=== PATIENT | male | born 1980 | race African-American/Black ===

== ENCOUNTER 2017-06-18 00:08 | Emergency (ER) | payer SELFPAY | END 2017-06-18 00:39 | disposition left against medical advice (07) | LOC: ER 00:08 | DX: S05.92XA Unspecified injury of left eye and orbit, initial encounter (principal); Z53.21 Procedure and treatment not carried out due to patient leaving prior to being seen by health care provider; W22.8XXA Striking against or struck by other objects, initial encounter; Y93.89 Activity, other specified; Y92.89 Other specified places as the place of occurrence of the external cause; Y99.8 Other external cause status ==

== ENCOUNTER 2021-02-02 04:21 | Emergency (ER) | payer SELFPAY ==
[~2021-02-02] VITALS: Ht 182.9 cm; Wt 86.7 kg
[~2021-02-02 04:21] MED LIST: AMOX1TAB61 PO; QUET200T4 PO
[2021-02-02 04:55] VITALS: BP 155/86
--- NOTE | 2021-02-02 05:06 | PHYS DOC ---
Past Medical History Past Medical History: No Pertinent History Past Surgical History: No Surgical History Smoking Status: Current Every Day Smoker Alcohol Use: None Drug Use: Marijuana, Methamphetamine General Adult EDM: Chief Complaint: MEDICAL CLEARANCE HPI: HPI: 40-year-old male presents in police custody for medical clearance for incarceration. Patient reports some midsternal intermittent chest pain after jumping into a pond at 0300 this morning. Patient reports the police were going to tease him and that is when he jumped in the pond. Patient reports no significant cardiac risk factors except for smoking history. Patient denies any leg swelling or calf tenderness. Patient reports symptoms have since resolved. Review of Systems: Review of Systems: Constitutional: Denies fever or chills Eyes: Denies redness or eye pain HENT: Denies nasal congestion or sore throat Respiratory: Denies cough or shortness of breath Cardiovascular: Reports chest pain; denies palpitations GI: Denies abdominal pain, nausea, or vomiting : Denies dysuria or hematuria Musculoskeletal: Denies back pain or joint pain Integument: Denies rash or skin lesions Neurologic: Denies headache, focal weakness or sensory changes Complete systems were reviewed and found to be within normal limits, except as documented in this note. Heart Score: C/O Chest Pain: Yes HEART Score for Chest Pain: HEART Score for Chest Pain Response (Comments) Value History Slighlty/Non-Suspicious 0 ECG Normal 0 Age < 45 0 Risk Factors 1 or 2 Risk Factors 1 Total 1 Risk Factors: Risk Factors: DM, Current or recent (<one month) smoker, HTN, HLP, family history of CAD, obesity. Risk Scores: Score 0 - 3: 2.5% MACE over next 6 weeks - Discharge Home Score 4 - 6: 20.3% MACE over next 6 weeks - Admit for Clinical Observation Score 7 - 10: 72.7% MACE over next 6 weeks - Early Invasive Strategies Allergies: Allergies: Allergies Coded Allergies Type Severity Reaction Last Updated Verified No Known Drug Allergies 10/02/15 No Physical Exam: PE: Constitutional: Well developed, well nourished, no acute distress, non-toxic appearance HENT: Normocephalic, atraumatic Eyes: Conjunctiva normal, no discharge Neck: Normal range of motion, supple Lungs & Thorax: No respiratory distress, equal chest rise and fall Abdomen: Soft, no tenderness Skin: Warm, dry, no erythema, no rash Extremities: No tenderness, ROM intact, no edema Neurologic: Alert and oriented X 3, no focal deficits noted Psychologic: Affect normal, judgment normal EKG: EKG: @0501 Sinus tachycardia at 108bpm, NO ST elevation, QRS 92ms, QT/QTc 324/438ms Radiology/Procedures: Radiology/Procedures: [] Course & Med Decision Making: Course & Med Decision Making Patient presents with atypical chest pain. EKG stable. Physical exam unremarkable. Patient cleared for incarceration. Patient stable for discharge with outpatient follow-up with PCP. Discussed findings and plan with patient, who acknowledges understanding and agreement. [place] Disclaimer: [employer] Disclaimer: This electronic medical record was generated, in whole or in part, using a voice recognition dictation system. Departure Departure Impression: Primary Impression: Medical clearance for incarceration Additional Impression: Atypical chest pain Disposition: 01 HOME / SELF CARE / HOMELESS Condition: STABLE Referrals: NO PCP (PCP) Patient Instructions: Chest Pain (Nonspecific), [id number] Additional Instructions: Patient appears medically stable for incarceration. RAMANDEEP COLBERT DO Feb 02, 2021 05:06
--- NOTE | 2021-02-02 05:21 | EKG ---
[facility] [address] [place] [address] Test Date: 2021-02-02 Test Time: 05:01:07 Pat Name: GLADYS GALLEGO Department: Room: Gender: M Customs Officer: : 1980 Requested By: RAMANDEEP COLBERT Order Number: [id number] Reading MD: Lio Medel Measurements Intervals [place] Rate: 108 P: 24 IL: 124 QRS: 73 QRSD: 92 T: 56 QT: 324 QTc: 438 Interpretive Statements SINUS TACHYCARDIA Electronically Signed On 02-02-2021 12:39:44 CDT by Lio Medel
== END 2021-02-02 05:16 | disposition home or self-care (01) ==
LOC: ER 04:21
DX: R07.2 Precordial pain (principal); F17.200 Nicotine dependence, unspecified, uncomplicated
CPT/HCPCS: 93005; 99283